=== PATIENT | female | born 1960 | race Caucasian/White ===

== ENCOUNTER 2016-12-23 00:53 | Inpatient (IN) | payer BC ==
--- NOTE | 2016-12-23 01:14 | ER Document Report ---
ED Fall <LISE CARMICHAEL - Last Filed: 12/23/16 04:56> - General Mode of Arrival: Ambulatory Information source: Patient TRAVEL OUTSIDE OF THE [place] IN LAST 30 DAYS: No - HPI Occurred: This morning Where: Other - son's house Context: Tripped - staying at her son's house. she got up to go to the bathroom. the bathroom is on the left and she turned right falling down the stairs Associated symptoms: None Location of injury/pain: Back - right upper back, Upper extremity - right upper arm Quality of pain: Sharp Severity: Severe Pain Level: 5 <MONICA DEJESUS - Last Filed: 12/23/16 06:30> - General Chief Complaint: Fall Injury Stated Complaint: FALL/RIGHT SHOULDER PAIN Time Seen by Provider: 12/23/16 01:13 Notes: 56-year-old female presents to ED for pain in her right upper arm and right side of the upper back. She states that she fell down the stairs at her son's house. 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 denies: Arthritis, CAD, COPD, DM, Hyperlipidemia, Hypertension, Thyroid Disfunction Patient has suicidal ideation: No Patient has homicidal ideation: No - Past Medical History Cardiac Medical History: Reports: None Pulmonary Medical History: Reports: None EENT Medical History: Reports: None Neurological Medical History: Reports: None Endocrine Medical History: Reports: None Renal/ Medical History: Reports: None Malignancy Medical History: Reports: None GI Medical History: Reports: None Musculoskeltal Medical History: Reports None Skin Medical History: Reports None Psychiatric Medical History: Reports: None Traumatic Medical History: Reports: None Infectious Medical History: Reports: None Surgical Hx: Negative Past Surgical History: Reports: None <MONICA DEJESUS - Last Filed: 12/23/16 06:30> Review of Systems - Review of Systems Constitutional: No symptoms reported EENT: No symptoms reported Cardiovascular: No symptoms reported Respiratory: No symptoms reported Gastrointestinal: No symptoms reported Genitourinary: No symptoms reported Female Genitourinary: No symptoms reported Musculoskeletal: Back pain, Other - Right upper arm pain after fall Skin: No symptoms reported Hematologic/Lymphatic: No symptoms reported Neurological/Psychological: No symptoms reported -: Yes All other systems reviewed and negative <MONICA DEJESUS - Last Filed: 12/23/16 06:30> Physical Exam - Vital signs Interpretation: Normal - General General appearance: Appears well, Alert - HEENT Head: Normocephalic, Atraumatic Eyes: Normal Pupils: PERRL - Respiratory Respiratory status: No respiratory distress Chest status: Nontender Breath sounds: Normal Chest palpation: Normal - Cardiovascular Rhythm: Regular Heart sounds: Normal auscultation Murmur: No - Abdominal Inspection: Normal Distension: No distension Bowel sounds: Normal Tenderness: Nontender Organomegaly: No organomegaly - Back Back: Normal, Nontender - Extremities General upper extremity: Normal color, Normal temperature General lower extremity: Normal inspection, Nontender, Normal color, Normal ROM , Normal temperature, Normal weight bearing. No: Juan's sign Shoulder: Normal, Nontender, Limited ROM - Due to pain in the upper arm and upper right back Arm: Tender, Ecchymosis Elbow: Normal, Nontender Forearm: Normal, Nontender Wrist: Normal, Nontender Hand: Normal, Nontender - Neurological Neuro grossly intact: Yes Cognition: Normal Orientation: AAOx4 [place] Coma Scale Eye Opening: Spontaneous [place] Coma Scale Verbal: Oriented [place] Coma Scale Motor: Obeys Commands [place] Coma Scale Total: 15 Speech: Normal Motor strength normal: LUE, RUE, LLE, RLE Sensory: Normal - Psychological Associated symptoms: Normal affect, Normal mood - Skin Skin Temperature: Warm Skin Moisture: Dry Skin Color: Normal <MONICA DEJESUS - Last Filed: 12/23/16 06:30> - Vital signs Vitals: Temp Pulse Resp BP Pulse Ox 97.3 F 92 18 101/53 L 98 12/23/16 00:56 12/23/16 00:56 12/23/16 00:56 12/23/16 00:56 12/23/16 00:56 Course - Laboratory Result Diagrams: 12/23/16 03:43 12/23/16 03:43 <LISE CARMICHAEL - Last Filed: 12/23/16 04:56> - Laboratory Result Diagrams: 12/23/16 03:43 12/23/16 03:43 <LEW DEJESUSLINE - Last Filed: 12/23/16 06:30> - Re-evaluation Re-evalutation: 12/23/16 02:50 Patient was initially seen by check aspect of the nurse practitioner. I received a phone call from the radiologist that there appears to be pneumothorax. I did go immediately evaluate the patient. She did fall backwards. She has pain in her back. I did review the x-ray. She does have pneumothorax. I did obtain a full plain form chest x-ray. It appears that she does have a posterior rib fracture with a small pneumothorax. I do not see an effusion on the x-ray. At this time I will call the surgeon to see if his recommendations are to place a pigtail catheter or chest tube to help relieve the pneumothorax. 12/23/16 03:[address] with [address] Mckeon, the surgeon. I did explain to him that she does have a 2.6 cm pneumothorax. He said this time is small enough where he can observe her and not necessarily place a chest tube at this time. I did explain this to the patient and her she is agreeable to staying. Patient is on the monitor and have placed on nasal cannula oxygen. I did once again asked the patient if she has any medical problems all. Patient continues to deny any history of medical problems and takes no medications. 12/23/16 03:39 Reviewing the chest x-ray again Dr. Mckeon now feels that the pigtail catheter be more appropriate. I did discuss this with the patient and talked her about placement of a pigtail catheter and what it entails. Patient is agreeable to this. (LISE CARMICHAEL) - Vital Signs Vital signs: Temp Pulse Resp BP Pulse Ox 98.2 F 85 18 106/61 100 12/23/16 06:08 12/23/16 06:08 12/23/16 06:08 12/23/16 06:08 12/23/16 06:08 Procedures - Chest Tube Right Midclavicular Consent obtained: Yes Chest tube pre-insertion: Chloraprep applied, Sterile drapes applied Size of [place] Tube (cm): 1 - pigtail Anesthetic type: 1% Lidocaine mL's of anesthetic: 2 Chest tube post-insertion: Sutured, Water seal, Low intermittent suction, Other - condensation seen in pig tail Number of attempts: 1 Complications: No <LISE CARMICHAEL - Last Filed: 12/23/16 04:56> Discharge - Discharge Admitting Provider: Surgicalist Unit Admitted: Telemetry <LISE CARMICHAEL - Last Filed: 12/23/16 04:56> <MONICA DEJESUS - Last Filed: 12/23/16 06:30> - Discharge Clinical Impression: Pneumothorax Qualifiers: Pneumothorax type: traumatic Encounter type: initial encounter Qualified Code(s ): S27.0XXA - Traumatic pneumothorax, initial encounter Rib fracture Qualifiers: Encounter type: initial encounter Rib fracture type: single rib Fracture type: closed Laterality: right Qualified Code(s): S22.31XA - Fracture of one rib, right side, initial encounter for closed fracture
[2016-12-23] MEDS ORDERED: OXYCODONE-ACETAMINOPHEN 5-325 MG TABLET PO ONE (01:41)
[2016-12-23] MEDS ORDERED: IBUPROFEN 600 MG TABLET PO ONE (01:42)
--- NOTE | 2016-12-23 02:05 | RADIOLOGY REPORT (SQ) ---
EXAM DESCRIPTION: SHOULDER RIGHT 2 OR MORE VIEWS COMPLETED DATE/TIME: 12/23/2016 1:13 am REASON FOR STUDY: fall injury COMPARISON: None. NUMBER OF VIEWS: Three views. TECHNIQUE: Internal rotation, external rotation, and Y view images acquired of the right shoulder. LIMITATIONS: None. FINDINGS: MINERALIZATION: Normal. BONES: Revl-ko-pkxjzcbq osteoarthritis of the right shoulder. JOINTS: No dislocation. VISUALIZED LUNGS AND RIBS: Small -moderate right apical pneumothorax with pleural separation measurin g 2.6 cm. SOFT TISSUES: No radiopaque foreign body. OTHER: No other significant finding. IMPRESSION: 2.6 cm right apical pneumothorax. Nswr-tw-ivwdvgsu osteoarthritis of the right shoulder . TECHNICAL DOCUMENTATION: JOB ID: [id number] [employer]- All Rights Reserved
--- NOTE | 2016-12-23 02:06 | RADIOLOGY REPORT (SQ) ---
EXAM DESCRIPTION: T SPINE AP/LAT COMPLETED DATE/TIME: 12/23/2016 1:37 am REASON FOR STUDY: fall pain to right upper back and upper arm COMPARISON: None. NUMBER OF VIEWS: Two views. TECHNIQUE: AP and lateral radiographic images acquired of the thoracic spine. LIMITATIONS: None. FINDINGS: MINERALIZATION: Normal. ALIGNMENT: Normal. No scoliosis. VERTEBRAE: No fracture or bone lesion. Maintained height, normal segmentation. DISCS: No significant loss of height or significant narrowing. No large osteophytes. HARDWARE: None in the spine. MEDIASTINUM AND SOFT TISSUES: Normal heart size and aortic contour. No soft tissue abnormality. VISUALIZED LUNG HALL: Small -moderate right apical pneumothorax with pleural separation measuring 2 .6 cm. OTHER: No other significant finding. IMPRESSION: Small to moderate right apical pneumothorax. COMMENT: This report was called to Dr. Posey at01:57 on 12/23/2016. TECHNICAL DOCUMENTATION: JOB ID: [id number] [employer]- All Rights Reserved
--- NOTE | 2016-12-23 02:07 | RADIOLOGY REPORT (SQ) ---
EXAM DESCRIPTION: HUMERUS RIGHT COMPLETED DATE/TIME: 12/23/2016 1:37 am REASON FOR STUDY: fall pain to right upper back and upper arm COMPARISON: None. NUMBER OF VIEWS: Two views. TECHNIQUE: Two radiographic images were acquired of the right humerus to include elbow and shoulder in at least one projection. LIMITATIONS: None. FINDINGS: MINERALIZATION: Normal. BONES: No acute fracture or dislocation. No worrisome bone lesions. SOFT TISSUES: No obvious swelling or foreign body. OTHER: Ldka-oh-toulavbq osteoarthritis of the right shoulder and small to moderate right apical pneum othorax reported separately. IMPRESSION: Intact right humerus.Bjly-ki-fvfnyokc osteoarthritis of the right shoulder and small to moderate right apical pneumothorax reported separately. TECHNICAL DOCUMENTATION: JOB ID: [id number] [employer]- All Rights Reserved
--- NOTE | 2016-12-23 02:41 | RADIOLOGY REPORT (SQ) ---
EXAM DESCRIPTION: CHEST SINGLE VIEW COMPLETED DATE/TIME: 12/23/2016 2:29 am REASON FOR STUDY: pneumothorax. COMPARISON: None. EXAM PARAMETERS: NUMBER OF VIEWS: One view. TECHNIQUE: Single frontal radiographic view of the chest acquired. RADIATION DOSE: NA LIMITATIONS: None. FINDINGS: LUNGS AND PLEURA: Moderate right apical pneumothorax with 3.2 cm pleural separation. MEDIASTINUM AND HILAR STRUCTURES: No masses. Contour normal. HEART AND VASCULAR STRUCTURES: Heart normal in size. Normal vasculature. BONES: 0.8 cm displaced right posterior 4th rib fracture. HARDWARE: None in the chest. OTHER: Small soft tissue emphysema of the deep right upper hemithorax. IMPRESSION: Moderate right apical pneumothorax with 3.2 cm pleural separation. 0.8 cm displaced rig ht posterior 4th rib fracture. TECHNICAL DOCUMENTATION: JOB ID: [id number]
--- NOTE | 2016-12-23 02:44 | RADIOLOGY REPORT (SQ) ---
EXAM DESCRIPTION: SCAPULA RIGHT COMPLETED DATE/TIME: 12/23/2016 2:29 am REASON FOR STUDY: trauma COMPARISON: None. TECHNIQUE: 2 images. LIMITATIONS: None. FINDINGS: Intact radiographic appearance of the right scapula. 0.8 cm displaced right posterior 4th rib fracture. Glzw-qg-iiyknefi osteoarthritis of the right shoulder. Moderate right apical pneumot horax with pleural separation measuring 3.5 cm. IMPRESSION: Moderate-small right apical pneumothorax. Right 4th posterior rib fracture. Intact rad iographic appearance of the right scapula. TECHNICAL DOCUMENTATION: JOB ID: [id number] [employer]- All Rights Reserved
[2016-12-23] MEDS ORDERED: HYDROMORPHONE HCL INJ/PF 2 MG/ML AMPULE IV PRN ×2 (03:37)
[2016-12-23] MEDS ORDERED: ONDANSETRON HCL INJ/PF 4 MG/2 ML SDV IV PRN (03:37)
[2016-12-23] MEDS ORDERED: FENTANYL CITRATE INJ/PF 100 MCG/2 ML AMPUL IV ONE (03:41)
[2016-12-23 04:01] LABS: ABSOLUTE LYMPHOCYTES (AUTO) 0.6 10^3/uL (0.5-4.7); ABSOLUTE MONOCYTES (AUTO) 0.5 10^3/uL (0.1-1.4); ABSOLUTE NEUT (AUTO) 7.2 10^3/uL (1.7-8.2); BASOPHILS % (AUTO) 0.2 % (0-2); EOSINOPHILS % (AUTO) 0.4 % (0-6); HEMATOCRIT 41.3 % (36.0-47.0); HEMOGLOBIN 13.9 g/dL (12.0-15.5); HGB HCT DIFFERENCE 0.4; LYMPHOCYTES % (AUTO) 6.8 % (13-45); MEAN CORPUSCULAR HEMOGLOBIN 35.2 pg (27.0-33.4); MEAN CORPUSCULAR HGB CONC 33.6 g/dL (32.0-36.0); MEAN CORPUSCULAR VOLUME 105 fl (80-97); MONOCYTES % (AUTO) 5.8 % (3-13); RED BLOOD COUNT 3.94 10^6/uL (3.72-5.28); RED CELL DISTRIBUTION WIDTH 12.8 % (11.5-14.0); SEGMENTED NEUTROPHILS % (AUTO) 86.8 % (42-78); WHITE BLOOD COUNT 8.3 10^3/uL (4.0-10.5)
[2016-12-23 04:04] LABS: ANION GAP 12 (5-19); BLOOD UREA NITROGEN 9 mg/dL (7-20); CALCIUM 9.7 mg/dL (8.4-10.2); CARBON DIOXIDE 25 mmol/L (22-30); CHLORIDE 104 mmol/L (98-107); GLUCOSE 128 mg/dL (75-110); POTASSIUM 4.3 mmol/L (3.6-5.0); SODIUM 140.8 mmol/L (137-145)
[2016-12-23 04:10] LABS: PROTHROMBIN TIME 12.5 SEC (11.4-15.4)
[2016-12-23 04:11] LABS: PARTIAL THROMBOPLASTIN TIME 23.1 SEC (23.5-35.8)
--- NOTE | 2016-12-23 05:59 | RADIOLOGY REPORT (SQ) ---
EXAM DESCRIPTION: CHEST SINGLE VIEW COMPLETED DATE/TIME: 12/23/2016 5:40 am REASON FOR STUDY: pigtail placement COMPARISON: 12/23/2016. EXAM PARAMETERS: NUMBER OF VIEWS: One view. TECHNIQUE: Single frontal radiographic view of the chest acquired. RADIATION DOSE: NA LIMITATIONS: None. FINDINGS: LUNGS AND PLEURA: Small residual right apical pneumothorax with pleural separation measuri ng 1.1 cm. Small bibasilar atelectasis. MEDIASTINUM AND HILAR STRUCTURES: No masses. Contour normal. HEART AND VASCULAR STRUCTURES: Heart normal in size. Normal vasculature. BONES: Right posterior 4th rib fracture. HARDWARE: Interval placement of a right pigtail chest catheter. OTHER: No other significant finding. IMPRESSION: Improved, small residual right apical pneumothorax. Right chest tube. TECHNICAL DOCUMENTATION: JOB ID: [id number]
[2016-12-23] MEDS: ENOXAPARIN SODIUM INJ 40 MG/0.4 ML DISP.SYRIN SUBCUT SCH (08:23)
[2016-12-23] MEDS: HYDROCODONE/ACETAMINOPHEN 5-325 MG TABLET PO PRN ×3 (08:23→20:48)
--- NOTE | 2016-12-23 08:58 | HISTORY AND PHYSICAL E ---
History and Physical NAME: TAMMY DELVALLE : 1960 AGE: 56Y ADMITTED: 12/23/2016 ROOM: 319 REASON FOR ADMISSION: Fall with rib fracture and right pneumothorax. HISTORY OF PRESENT ILLNESS: The patient is a 56-year-old female who had just moved her son into a house and was up at night. Lights were off and she fell down the stairs accidentally. She fell onto her right side and back. She had pain in the chest and arm afterwards. She did not hit her head or lose any consciousness. She was then taken to the emergency room to be evaluated. PAST SURGICAL HISTORY: None. MEDICAL PROBLEMS: None. MEDICATIONS: None. ALLERGIES TO MEDICATIONS: None. HABITS: The patient denies any smoking, alcohol, or drug use. SOCIAL HISTORY: The patient is . FAMILY HISTORY: Noncontributory. REVIEW OF SYSTEMS: PULMONARY: Mild shortness of breath secondary to the chest pain. MUSCULOSKELETAL: Pain in the right chest region and shoulder. A 12-point review of systems was obtained with pertinent positives discussed and all others being negative. PHYSICAL EXAMINATION: VITALS: Blood pressure 106/61, temperature 98.2, pulse 85, respirations 18. GENERAL: The patient is sitting up in bed. She is cooperative and not in any distress at the current time. EYES: Anicteric. NECK: No lymphadenopathy. HEART: Regular. LUNGS: Clear, but diminished due to decreased inspiration. CHEST: She has a right chest tube placed. There does not appear to be an air leak in the chest tube. ABDOMEN: Soft, nontender. EXTREMITIES: The patient has a tender right shoulder with bruising being present. She does have some decreased range of motion due to the discomfort in the shoulder. There does not appear to be any dislocation. She has normal elbow and hand movements with normal strength. Neurologically intact in all extremities. There are no other extremity injuries. DIAGNOSTIC DATA: 1. Chest x-ray reveals a 3.2 cm pneumothorax with posterior right rib fracture. 2. X-rays of the scapulae, humerus, thoracic and shoulder x-rays were all normal. ASSESSMENT: 1. Fall with: a. Right posterior fourth rib fracture. b. Right pneumothorax, traumatic. She has had a chest tube placed with only residual pneumothorax being present. There does not appear to be an air leak on the chest tube. c. Right shoulder injury, most likely bruising, but if pain persists then orthopedic evaluation will be needed. PLAN: 1. Continue chest tube until pneumothorax resolves. 2. Pain control. 3. Cough, deep breathing and incentive spirometry use. DICTATING PHYSICIAN: SHIVAM GALINDO M.D. [id number] PHY#: [id number] ID: [id number] JOB#: [id number] ACCT: [id number] cc:SHIVAM GALINDO M.D. >
[2016-12-23] MEDS: IBUPROFEN 600 MG TABLET PO PRN (20:47)
[2016-12-24] MEDS: HYDROCODONE/ACETAMINOPHEN 5-325 MG TABLET PO PRN ×3 (07:01→15:25)
[2016-12-24] MEDS: IBUPROFEN 600 MG TABLET PO PRN (08:45)
[2016-12-24] MEDS: ENOXAPARIN SODIUM INJ 40 MG/0.4 ML DISP.SYRIN SUBCUT SCH (08:54)
--- NOTE | 2016-12-24 08:54 | RADIOLOGY REPORT (SQ) ---
EXAM DESCRIPTION: CHEST SINGLE VIEW COMPLETED DATE/TIME: 12/24/2016 8:40 am REASON FOR STUDY: chest tube placement COMPARISON: 12/23/2016 EXAM PARAMETERS: NUMBER OF VIEWS: One view. TECHNIQUE: Single frontal radiographic view of the chest acquired. RADIATION DOSE: NA LIMITATIONS: None. FINDINGS: LUNGS AND PLEURA: A tiny residual right apical pneumothorax is identified. The previously described basilar atelectatic changes appear improved. MEDIASTINUM AND HILAR STRUCTURES: No masses. Contour normal. HEART AND VASCULAR STRUCTURES: Heart normal in size. Normal vasculature. BONES: No acute findings. HARDWARE: Pleural drainage catheter on the right is unchanged in position. OTHER: No other significant finding. IMPRESSION: Tiny residual right apical pneumothorax. Interval improvement in the basilar atelectati c changes. Other findings as noted above TECHNICAL DOCUMENTATION: JOB ID: [id number]
[2016-12-24 12:14] VITALS: BP 126/70
--- NOTE | 2016-12-24 14:14 | RADIOLOGY REPORT (SQ) ---
EXAM DESCRIPTION: CHEST SINGLE VIEW COMPLETED DATE/TIME: 12/24/2016 2:00 pm REASON FOR STUDY: pneumothorax COMPARISON: 12/23/2016 EXAM PARAMETERS: NUMBER OF VIEWS: One view. TECHNIQUE: Single frontal radiographic view of the chest acquired. RADIATION DOSE: NA LIMITATIONS: None. FINDINGS: LUNGS AND PLEURA: A tiny residual right apical pneumothorax is identified. There is some minimal residual left basilar density. Remaining lung jensen are clear. MEDIASTINUM AND HILAR STRUCTURES: No masses. Contour normal. HEART AND VASCULAR STRUCTURES: Heart normal in size. Normal vasculature. BONES: No acute findings. HARDWARE: Pleural drainage catheter on the right is unchanged in position. OTHER: No other significant finding. IMPRESSION: A tiny residual right apical pneumothorax is identified. There is some minimal residual left basilar density. Other findings as noted above. TECHNICAL DOCUMENTATION: JOB ID: [id number]
--- NOTE | 2016-12-24 17:00 | RADIOLOGY REPORT (SQ) ---
EXAM DESCRIPTION: CHEST SINGLE VIEW COMPLETED DATE/TIME: 12/24/2016 4:47 pm REASON FOR STUDY: removal of chest tube COMPARISON: Earlier exam same date EXAM PARAMETERS: NUMBER OF VIEWS: One view. TECHNIQUE: Single frontal radiographic view of the chest acquired. RADIATION DOSE: NA LIMITATIONS: None. FINDINGS: LUNGS AND PLEURA: Residual small right apical pneumothorax. Minimal basilar subsegmental atelectasis is present bilaterally. No consolidation or significant effusion. MEDIASTINUM AND HILAR STRUCTURES: Stable. HEART AND VASCULAR STRUCTURES: Stable. BONES: Similar appearance of right upper 3rd and 4th posterior rib fractures. HARDWARE: None in the chest. OTHER: No other significant finding. IMPRESSION: Residual small right apical pneumothorax. TECHNICAL DOCUMENTATION: JOB ID: [id number]
--- NOTE | 2017-01-29 08:52 | DISCHARGE SUMMARY E ---
Discharge Summary NAME: TAMMY DELVALLE : 1960 AGE: 56Y ADMITTED: 12/23/2016 DISCHARGED: 12/25/2016 REASON FOR ADMISSION: Fall with multiple trauma. HISTORY OF PRESENT ILLNESS: Patient is a 56-year-old female who was staying at her son's house. She had gotten up at night and fell down the steps. She had injured her right thigh. Because of this she came to the emergency room to be evaluated. PRINCIPAL DIAGNOSES: Fall with: 1. Right pneumothorax. 2. Right upper arm contusion. 3. Degenerative joint disease, right shoulder. 4. Posterior right fourth rib fracture. PROCEDURE: Patient underwent placement of a right chest tube on 12/23/16. HOSPITAL COURSE: The patient was admitted to the hospital. She had a mkjn-lp-ncrwbjna sized right pneumothorax measuring 3.2 cm. A right chest tube was then placed. The patient only had a small residual pneumothorax after placement. The chest tube was hooked to suction and the patient was then transferred to the floor. She had contused her right upper arm; however, there did not appear to be any fracture deemed present. Patient was encouraged to use an incentive spirometer. Patient was watched for 2 days in the hospital with only a small residual pneumothorax being seen on chest x-ray. The chest tube was placed to water seal with no change in the small pneumothorax. Patient again did not have any air leaks on water seal. The chest tube was then removed 2 days after the admission with the small pneumothorax being unchanged. She was able to ambulate and not have any shortness of breath at this point. She was then discharged home in stable condition. DISCHARGE PROGRAM: Patient is to be discharged home. She will have a follow-up chest x-ray in the morning to ensure stability in the small pneumothorax. She is traveling out of town and will follow up with a primary care physician. She is to have Kinder 5 mg/325 mg 1-2 p.o. every 4-6 hours p.r.n. pain. She should not drive. Ambulate with deep breathing and coughing, including using her incentive spirometer. DICTATING PHYSICIAN: SHIVAM GALINDO M.D. [id number] PHY#: [id number] ID: [id number] JOB#: [id number] ACCT: [id number] cc:SHIVAM GALINDO M.D. >
== END 2016-12-24 17:39 | disposition home or self-care (01) | DRG 200 ==
LOC: ER 00:53 → UNDOADMOB 03:32 → EH 03:32 → OBSVTOIN 03:32 → INTOOBSV 03:32 → OBSVTOIN 03:37 → EH 03:37 → 3W 06:06
PROVIDERS: ADMIT Surgery; ATTEND Surgery
PROC: 0W9900Z Drainage of Right Pleural Cavity with Drainage Device, Open Approach (ICD-10-PCS; principal; 2016-12-23)
DX: S27.0XXA Traumatic pneumothorax, initial encounter (principal); S22.31XA Fracture of one rib, right side, initial encounter for closed fracture; S40.021A Contusion of right upper arm, initial encounter; M19.011 Primary osteoarthritis, right shoulder; W10.8XXA Fall (on) (from) other stairs and steps, initial encounter; Y92.019 Unspecified place in single-family (private) house as the place of occurrence of the external cause
CPT/HCPCS: 36415; 71010; 72070; 80048; 85025; 85610; 85730; 99285; J1170

== ENCOUNTER → 2016-12-25 | Outpatient (CLI) | payer BC ==
--- NOTE | 2016-12-25 08:10 | RADIOLOGY REPORT (SQ) ---
EXAM DESCRIPTION: CHEST PA/LAT COMPLETED DATE/TIME: 12/25/2016 7:53 am REASON FOR STUDY: F/U R PNEUMOTHORAX COMPARISON: Multiple films since 12/23/2016 EXAM PARAMETERS: NUMBER OF VIEWS: two views TECHNIQUE: Digital Frontal and Lateral radiographic views of the chest acquired. RADIATION DOSE: NA LIMITATIONS: none FINDINGS: LUNGS AND PLEURA: Stable right apical pneumothorax. Minimal right upper anterior chest wall air. No acute infiltrates. No pleural effusion. No left pneumothorax. MEDIASTINUM AND HILAR STRUCTURES: No masses or contour abnormalities. HEART AND VASCULAR STRUCTURES: Heart normal size. No evidence for failure. BONES: Right posterior upper rib fractures are unchanged HARDWARE: None in the chest. OTHER: No other significant finding. IMPRESSION: Stable right apical tiny pneumothorax. Unchanged posterior right upper rib fractures. TECHNICAL DOCUMENTATION: JOB ID: [id number] [employer]- All Rights Reserved
== END ==
LOC: RAD 07:42
PROVIDERS: ATTEND Surgery
DX: J93.9 Pneumothorax, unspecified (principal)
CPT/HCPCS: 71020